=== PATIENT | male | born 1965 | race Two or more races ===

== ENCOUNTER 2019-12-06 04:26 | Emergency (ER) | payer BC ==
[~2019-12-06] VITALS: Ht 167.6 cm; Wt 82.6 kg
[2019-12-06 04:30] VITALS: BP 156/67
[2019-12-06 05:23] LABS: Urine Bacteria NONE SEEN /hpf (None Seen); Urine Blood Negative /uL (Negative); Urine Specific Gravity 1.019 (1.001-1.035); Urine WBC 3 /hpf (0 - 3)
== END 2019-12-06 07:02 | disposition left against medical advice (07) ==
LOC: ER 04:26
DX: R07.89 Other chest pain (principal); R10.13 Epigastric pain
CPT/HCPCS: 81001; 93005

== ENCOUNTER 2023-10-18 05:50 | Inpatient (IN) | payer BC ==
[~2023-10-18] VITALS: Ht 167.6 cm; Wt 200.7 kg
[~2023-10-18 05:50] MED LIST: GABA-339 PO
[2023-10-18] MEDS ORDERED: HYDROmorphone HCL 2 MG/ML VL/or syr ONE (11:48)
[2023-10-18] MEDS ORDERED: fentaNYL CITRATE 100 MCG/2 ML VL ONE (11:48)
[2023-10-18] MEDS ORDERED: MIDAZOLAM HCL 2MG/2ML 2ml VIAL (1mg/ml) ONE (11:49)
[2023-10-18] MEDS ORDERED: DexAMETHasone SOD PHOS 10MG/1ML VIAL INJ ONE (11:50)
[2023-10-18] MEDS ORDERED: PROPOFOL 10 MG/ML 20 ML IV ONE (11:50)
[2023-10-18] MEDS ORDERED: TRANEXAMIC ACID 20 ML ONE (12:14)
[2023-10-18] MEDS ORDERED: ceFAZolin 1GM/50ML 100 ML IV ONE (12:46)
[2023-10-18] MEDS ORDERED: fentaNYL CITRATE 5 ML ONE (12:55)
[2023-10-18] MEDS ORDERED: ROCURONIUM 10MG/ML 10ML VIAL IV ONE (14:37)
[2023-10-18] MEDS ORDERED: ONDANSETRON HCL 4 MG/2 ML VIAL ONE (14:37)
[2023-10-18] MEDS ORDERED: HYDROmorphone HCL 2 MG/ML VL/or syr IV PRN (15:00)
[2023-10-18] MEDS ORDERED: ePHEDrine SULFATE 50 MG/ML AMP IV PRN (15:00)
[2023-10-18] MEDS ORDERED: MORPHINE SULFATE 4 MG/ML SYR/VIAL IV PRN (15:00)
[2023-10-18] MEDS ORDERED: LABETALOL HCL 5 MG/ML 4ML SYRINGE IV PRN (15:00)
[2023-10-18] MEDS ORDERED: MIDAZOLAM HCL 2MG/2ML 2ml VIAL (1mg/ml) IV PRN (15:00)
[2023-10-18] MEDS ORDERED: ONDANSETRON HCL 4 MG/2 ML VIAL IV PRN ×2 (15:00→16:00)
[2023-10-18] MEDS ORDERED: SUGAMMADEX 200mg/2ml Vial (100MG/ML) IV ONE (15:26)
[2023-10-18] MEDS ORDERED: BACITRACIN TOP OINT 1 UD PKG TOP ONE (15:32)
[2023-10-18 15:45] VITALS: PULSE 79; RESP 11; O2SAT 97
[2023-10-18] MEDS ORDERED: ceFAZolin 1GM/50ML 50 ML IV SCH (16:00)
[2023-10-18] MEDS ORDERED: MORPHINE SULFATE INJ 2 MG/ml SYRG IV PRN ×2 (16:00)
[2023-10-18] MEDS ORDERED: ACETAMINOPHEN 325 MG TAB PO PRN (16:00)
[2023-10-18] MEDS ORDERED: NITROGLYCERIN 0.4 MG SL TAB SL PRN (16:00)
[2023-10-18] MEDS ORDERED: hydrALAZINE HCL 20 MG/ML VL IV PRN (17:15)
[2023-10-18 18:06] VITALS: BP 162/96; PULSE 95; RESP 20; TEMP 97.5; O2SAT 97
[2023-10-18] MEDS: D5W/SOD CHLO 0.9% 1,000 ML IV SCH (18:30)
[2023-10-18 20:00] VITALS: PULSE 85; RESP 16; O2SAT 95
[2023-10-18 22:00] VITALS: BP 153/97; PULSE 90; RESP 16; TEMP 98.2; O2SAT 95
[2023-10-18] MEDS: DOCUSATE SOD 100 MG CAP PO SCH (22:17)
[2023-10-18] MEDS: CYCLOBENZAPRINE HCL 10 MG TAB PO SCH (22:17)
[2023-10-18] MEDS: HYDROcodone-ACET 10/325MG TAB PO PRN (22:24)
[2023-10-19] VITALS (7 sets, daily range): BP systolic 144–165; BP diastolic 76–104; PULSE 75–90; RESP 16–20; TEMP 97.7–98.1; O2SAT 91–95
[2023-10-19] MEDS: D5W/SOD CHLO 0.9% 1,000 ML IV SCH (02:00)
[2023-10-19] MEDS: CYCLOBENZAPRINE HCL 10 MG TAB PO SCH ×2 (05:36→13:12)
[2023-10-19 06:32] LABS: Basophils # (auto) 0 10 ^3/uL (0-0.2); Basophils % (auto) 0.1 % (0.0-2.0); Eosinophils # (auto) 0 10 ^3/uL (0-0.8); Hematocrit 43.2 % (41.0-53.0); Hemoglobin 14.7 g/dL (13.5-17.5); Lymphocytes # (auto) 1.6 10 ^3/uL (0.4-5.4); Lymphocytes % (auto) 13.2 % (10.0-50.0); Mean Corpuscular Hemoglobin 32.9 pg (28.0-32.0); Mean Corpuscular Hgb Conc. 34.1 g/dL (32.0-36.0); Mean Corpuscular Volume 96.4 fL (80.0-100.0); Monocytes # (auto) 0.8 10 ^3/uL (0-1.3); Monocytes % (auto) 6.3 % (0.0-12.0); Neutrophils # (auto) 9.8 10 ^3/uL (1.6-8.6); Neutrophils % (auto) 80.4 % (37.0-80.0); Nucleated Red Blood Cells % 0.1 %; Red Blood Cells 4.48 10^6/uL (4.5-5.90); Red Cell Distribution Width 13.4 % (11.8-14.3); White Blood Cell 12.2 10^3/uL (4.4-10.8)
[2023-10-19 06:44] LABS: Alanine Aminotransferase 44 U/L (7-40); Albumin 4.2 g/dL (3.2-4.8); Alkaline Phosphatase 83 U/L (46-116); Anion Gap 8 (5-15); Aspartate Aminotransferase 30 U/L (13-40); BUN/Creatinine Ratio 15.1 (10.0-20.0); Bilirubin, Total 1.8 mg/dL (0.2-1.0); Blood Urea Nitrogen 16 mg/dL (9-23); Calcium 9.5 mg/dL (8.5-10.1); Carbon Dioxide 25 mmol/L (20-30); Chloride 104 mmol/L (98-107); Glucose 141 mg/dL (74-106); Potassium 4.2 mmol/L (3.5-5.1); Sodium 137 mmol/L (136-145); Total Protein 6.6 g/dL (5.7-8.2)
[2023-10-19] MEDS: HYDROcodone-ACET 10/325MG TAB PO PRN (09:02)
[2023-10-19] MEDS: DOCUSATE SOD 100 MG CAP PO SCH (09:02)
[2023-10-19] MEDS ORDERED: D5W/SOD CHLO 0.9% 1,000 ML IV SCH (09:45)
[2023-10-19] MEDS ORDERED: amLODIPine BESYLATE 5 MG TAB PO SCH (10:00)
== END 2023-10-19 17:10 | disposition home or self-care (01) | DRG 472 ==
LOC: SUR 05:50 → TELE 15:49 → TELE-EAST 18:43 → EAST 10-19 12:09
PROVIDERS: ADMIT Orthopaedic Surgery; ATTEND Internal Medicine
PROC: 0RG20A0 Fusion of 2 or more Cervical Vertebral Joints with Interbody Fusion Device, Anterior Approach, Anterior Column, Open Approach (ICD-10-PCS; principal; 2023-10-19)
PROC: 0RB30ZZ Excision of Cervical Vertebral Disc, Open Approach (ICD-10-PCS; 2023-10-19)
PROC: 01N10ZZ Release Cervical Nerve, Open Approach (ICD-10-PCS; 2023-10-19)
PROC: 00NW0ZZ Release Cervical Spinal Cord, Open Approach (ICD-10-PCS; 2023-10-19)
PROC: 4A11X4G Monitoring of Peripheral Nervous Electrical Activity, Intraoperative, External Approach (ICD-10-PCS; 2023-10-19)
DX: M48.02 Spinal stenosis, cervical region (principal); Z68.45 Body mass index [BMI] 70 or greater, adult; E66.9 Obesity, unspecified; I10 Essential (primary) hypertension; G47.30 Sleep apnea, unspecified; M50.122 Cervical disc disorder at C5-C6 level with radiculopathy
CPT/HCPCS: 36415; 72040; 76000; 80053; 85025; 86850; 86900; 86901; 97163; G0378; J1100; J2250; J2405; J2704; J3490; J7042